=== PATIENT | female | born 1930 | race Caucasian/White ===

== ENCOUNTER 2019-01-23 14:01 | Day surgery (SDC) | payer MEDICARE, OTHER ==
[~2019-01-23 14:01] MED LIST: ASPIRIN E.C. 8181 MG PO; BENICAR HCT 251 TAB PO; BROVANA15 MCG/2 M IH; CALCIUM 600MG+D1 TAB PO; CLARITIN 1010 MG/TAB PO; FLAX OIL1000 MG PO; KLOR-CON 1010 MEQ PO; LIPITOR 10MG10 MG PO; MULTI VITAMINS1 TAB PO; PRILOSEC 20MG20 MG PO; PULMICORT0.25 MG/2 IH; REFRESH TEARS 330 ML OP; SINGULAIR 110 MG/TAB PO; THEO-DUR 2200 MG/TAB PO
[2019-01-23 15:52] LABS: BASO % 0.6 % (0.0-2.0); EOS # 0.1 (0.0-0.7); EOS % 0.9 % (0-4.0); GRAN # 4.2 (1.4-6.5); GRAN % 65.2 % (42.2-75.2); HEMATOCRIT 41.6 % (37.0-47.0); HEMOGLOBIN 13.1 g/dl (12.5-16.0); LYMPH # 1.4 (1.2-3.4); MEAN CELL VOLUME 105 fl (80.0-100.0); MEAN CORPUSCULAR HEMOGLOBIN 33 pg (27.0-31.0); MEAN CORPUSCULAR HGB CONC 32 g/dl (33.0-37.0); MEAN PLATELET VOLUME 11.9 fl (7.4-10.4); MONO # 0.7 (0.1-0.6); MONO % 11.1 % (1.7-9.3); PLATELET COUNT 132 K/mm3 (130-400); RED BLOOD COUNT 3.97 M/mm3 (4.10-5.30); REDCELL DISTRIBUTION WIDTH-CV 14.2 % (11.5-14.5)
[2019-01-23 15:58] LABS: ALBUMIN 3.6 gm/dL (3.5-5.0); BILIRUBIN,TOTAL 0.8 mg/dL (0.0-1.0); CALCIUM 10.2 mg/dL (8.4-10.2); CREATININE, serum 0.94 (0.52-1.25); MAGNESIUM 2.1 mg/dL (1.6-2.3); TOTAL PROTEIN 6.7 gm/dL (6.4-8.2)
--- NOTE | 2019-01-23 16:00 | NUR ---
Patient to room. Oriented to room, med rec reviewed. Assessment complete. Lung sounds are clear, normal heart rate and rhythm. Pulses equal and palpable. Skin warm, feet cold. patient states she is always cold. patient on room air. Denies pain, N/V, dizziness, SOB, palpitations, chest pain. patient assisted to chair.
[2019-01-23] MEDS ORDERED: ZANTAC 150MG T150 MG PO ×2 (16:17→16:18)
[2019-01-23] MEDS ORDERED: REMERON30 MG PO (16:19)
[2019-01-23] MEDS ORDERED: VITAMINC500CH PO (16:20)
[2019-01-23] MEDS ORDERED: MAGNESIUM250 M1 PO (16:20)
[2019-01-23] MEDS ORDERED: PROBIOTIC FORMU1 CAP PO (16:21)
[2019-01-23] MEDS ORDERED: NATURE'S BLE1000 MCG (16:23)
--- NOTE | 2019-01-23 17:00 | NUR ---
patient assisted to bathroom and changed into gown and assisted to bed. Daughter at bedside. patient requesting bedside commmode once Essie is started. patient has no other needs at this time.
[2019-01-23 19:45] VITALS: BP 154/71; PULSE 84; TEMP 98
--- NOTE | 2019-01-23 22:30 | NUR ---
PT FINISHED GOLYTELY AT THIS TIME. HAS HAD SEVERAL LOOSE STOOLS. STOOLS APPEAR TO BE LIGHTENING IN COLOR.
[2019-01-24] VITALS (12 sets, daily range): BP systolic 105–178; BP diastolic 43–84; PULSE 61–84; TEMP 97.3–98.5
[2019-01-24 06:27] LABS: CALCIUM 9.6 mg/dL (8.4-10.2); CREATININE, serum 0.79 (0.52-1.25); POTASSIUM 3.9 mmol/L (3.4-5.0)
--- NOTE | 2019-01-24 06:32 | NUR ---
PT HAS LESSENING ON FREQUENCY OF STOOLS OVERNIGHT. STOOLS MAINLY CLEAR, SLIGHT YELLOW TINGE NO SOLDITY TO THEM. NO OTHER CONSERNS VOICED OVERNIGHT. PLEASANT AND COOPERATIVE WITH CARES.
--- NOTE | 2019-01-24 08:50 | NUR ---
Pt alert and oriented with family at bedside. Pt NPO for EGD/colonscopy this afternoon. Pt stool clear to yellow this am x1. Pt denies SOB. Pt BS monitored and protocol in place for hypoglycemia when pt NPO. Pt denies further needs. Pt am assessment completed.
--- NOTE | 2019-01-24 10:00 | NUR ---
Pt on IV D10W per orders for low blood sugar and pt NPO. Pt denies symptoms at this time. Pt LAC keeps beeping and occluding. Pt IV started in right wrist and LAC discontinued. Pt remains on D10W and BS monitored. Pt has call light inreach and family at bedside.
--- NOTE | 2019-01-24 13:45 | NUR ---
Pt being taken down for procedure. Pt remains on D10W d/t BS 77 at 1335. Pt alert and oriented and denies pain. Pt family present.
--- NOTE | 2019-01-24 13:46 | NUR ---
SW attended clinical rounding and met with patient to discuss discharge planning. Patient lives in [facility] with her daughter. She utilizes a cane to ambulate. Patients PCP is dr Jamal Chappell and she obtains her medications from [facility] in [place]. Patient does not have any anticipated discharge needs at this time.
--- NOTE | 2019-01-24 16:15 | NUR ---
Pt returned from Endo. Pt remains sleepy but arouses easilty to voice. Pt on room air but put on oximask d/t desat in 80's then quickly recovered to 100%. Pt put on 2L via oxymask and saturations in mid 90's. Pt then placed on 2L via nasal cannula. Pt has call light in reach and denies needs and family at bedsie. Pt alert and oriented.
--- NOTE | 2019-01-24 19:20 | NUR ---
Pt alert and oriented. Pt saturations have varied mostly while pt dozes to sleep and desats to 89% on room air. Pt given oxygen at supper to help maintain above 90%. Pt had soup brought in by family. Pt chose to stay tonight to monitor oxygen level d/t slow recovery. Pt lungs clear upper and lower coarse. Pt denies feeling SOB. Pt has call light in reach and denies needs.
--- NOTE | 2019-01-24 23:00 | NUR ---
PT HAS BEEN ASLEEP THIS NOC. O2 SATS WHERE LOW WHEN ASLEEP. PUT PT ON OXIMASK DUE TO MOUTH BREATHING AT 0.5L OF 02. SATS WHERE 95 AT THIS TIME. PT WAS AROUSABLE BUT LETHARGIC.
[2019-01-25 00:24] VITALS: BP 106/44; PULSE 68; TEMP 96.9
[2019-01-25 05:18] VITALS: BP 130/47; PULSE 72; TEMP 97.5
[2019-01-25 06:28] LABS: BASO % 0.7 % (0.0-2.0); EOS # 0.1 (0.0-0.7); EOS % 1.4 % (0-4.0); GRAN # 3.7 (1.4-6.5); GRAN % 65.6 % (42.2-75.2); HEMATOCRIT 36.5 % (37.0-47.0); HEMOGLOBIN 11.6 g/dl (12.5-16.0); LYMPH # 1.3 (1.2-3.4); LYMPH % 22.3 % (20.0-51.0); MEAN CELL VOLUME 104 fl (80.0-100.0); MEAN CORPUSCULAR HEMOGLOBIN 33 pg (27.0-31.0); MEAN CORPUSCULAR HGB CONC 32 g/dl (33.0-37.0); MEAN PLATELET VOLUME 11.7 fl (7.4-10.4); MONO # 0.6 (0.1-0.6); MONO % 9.8 % (1.7-9.3); PLATELET COUNT 103 K/mm3 (130-400); RED BLOOD COUNT 3.51 M/mm3 (4.10-5.30); REDCELL DISTRIBUTION WIDTH-CV 14.1 % (11.5-14.5)
[2019-01-25 06:46] LABS: CALCIUM 8.4 mg/dL (8.4-10.2); CREATININE, serum 0.74 (0.52-1.25); POTASSIUM 3.3 mmol/L (3.4-5.0)
--- NOTE | 2019-01-25 07:00 | NUR ---
PT SLEPT WITH OXIMASK ON THROUGHOUT THIS NOC. APPEARED TO HAVE SLEPT REALLY WELL. FAMILY AT BEDSIDE, MONITIORED O2 SATS OVERNIGHT. PT APPEARED TO HAVE DONE WELL OVERNIGHT WITH THE OXIMASK ON MINIMAL O2 ON.
--- NOTE | 2019-01-25 07:15 | NUR ---
Received report, patient is awake and alert, assisted to bedside commode. Is on oxymask at 0.5 L O2. This was removed when assited to commode. Tolerated well, needed SBA and help with pulling down brief. Has no complaints of pain. Assisted with pericare and then back to bed. Urine is clear and yellow. Call light is within reach.
[2019-01-25 08:47] VITALS: BP 119/44; PULSE 83; TEMP 98.5
--- NOTE | 2019-01-25 11:16 | NUR ---
Patient discharged home at 1112 via private vehicle with daughter in law. Patient requested accu check to be complete prior to discharge resulting in 120. Also requested to ambulate in hallway which she tolerated fair. Stated she got a little light headed. I did ask if she was certain she should discharge and she stated yes. All belongings sent with patient. Reviewed discharge instructions. Assisted to vehicle in .
--- NOTE | 2019-01-25 12:27 | NUR ---
Before patient was discharged chief librarian circulation department prayed with patient while family was in room.
== END 2019-01-25 11:12 | disposition home or self-care (01) ==
LOC: SDCO 14:01 → MEDICAL 14:01 → SDCO 01-24 14:00
PROVIDERS: Physician Assistant
DX: K57.30 Diverticulosis of large intestine without perforation or abscess without bleeding (principal); K21.9 Gastro-esophageal reflux disease without esophagitis; R63.4 Abnormal weight loss; I10 Essential (primary) hypertension; E78.5 Hyperlipidemia, unspecified; J44.9 Chronic obstructive pulmonary disease, unspecified; E83.52 Hypercalcemia; E87.6 Hypokalemia; E87.3 Alkalosis; E16.2 Hypoglycemia, unspecified; Z90.12 Acquired absence of left breast and nipple; Z79.82 Long term (current) use of aspirin; Z88.2 Allergy status to sulfonamides; Z80.3 Family history of malignant neoplasm of breast; Z80.1 Family history of malignant neoplasm of trachea, bronchus and lung; Z80.8 Family history of malignant neoplasm of other organs or systems; Z88.0 Allergy status to penicillin; Z88.1 Allergy status to other antibiotic agents; Z85.3 Personal history of malignant neoplasm of breast; Z88.8 Allergy status to other drugs, medicaments and biological substances
CPT/HCPCS: OP; G0378; G0379; J2250; J3010; J7070